=== PATIENT | female | born 1950 | race Caucasian/White ===

== ENCOUNTER → 2016-12-27 | Outpatient (CLI) | payer MEDICARE ==
--- NOTE | 2016-12-27 10:05 | MM ---
Reason for exam: screening (asymptomatic). History: Patient is postmenopausal. Physical Findings: A clinical breast exam by your physician is recommended on an annual basis and results should be correlated with mammographic findings. MG Screening Mammo w CAD Bilateral CC and MLO view(s) were taken. No prior studies available for comparison. The breast tissue is heterogeneously dense. This may lower the sensitivity of mammography. Finding: There are typically benign round, diffuse/scattered and grouped calcifications in both breasts. There is no discrete abnormality. ASSESSMENT: Benign, BI-RAD 2 RECOMMENDATION: Routine screening mammogram of both breasts in 1 year.
--- NOTE | 2016-12-27 10:05 | BD ---
EXAMINATION TYPE: MG DEXA axial skeleton. DATE OF EXAM: 12/27/2016 9:42 AM COMPARISON: NONE CLINICAL HISTORY: Post menopausal female. Height: 63.7 IN Weight: 192 LBS FRAX RISK QUESTIONS: Alcohol (3 or more units per day): NO Family History (Parent hip fracture): NO Glucocorticoids (More than 3mos): NO (Ex: prednisone, prednisolone, methylprednisolone, dexamethasone, and hydrocortisone). History of Fracture in Adulthood: NO Secondary Osteoporosis: 1. Type 1 Diabetes: NO 2. Hyperthyroidism: NO 3. Menopause before 45: NO AGE 51 4. Malnutrition: NO 5. Chronic liver disease: NO Rheumatoid Arthritis: NO Current Tobacco Use: NO RISK FACTORS HISTORY OF: Active: YES Diet low in dairy products/other sources of calcium: YES Postmenopausal woman: AGE 51 Frequent falls: YES BALANCE ISSUES MEDICATIONS: Thyroid Medications: YES Which medication: Synthroid How Lon MONTHS Additional Medications: MULTI VIT, SYNTHROID, B-12, MAGNESIUM,ASPIRIN, GLIPIZIDE, ATORVASTATIN, METOP ROLOL,FLECAINIDE EXAM MEASUREMENTS: Bone mineral densitometry was performed using the [employer] System. Bone mineral density as measured about the Lumbar spine is: ----- L1-L4(G/cm2): 1.199 T Score Values are as follows: ----- L2: -0.6 ----- L3: 0.7 ----- L4: 1.1 ----- L1-L4: 0.2 Bone mineral density BASELINE Bone mineral density about the R hip (g/cm2): 0.886 Bone mineral density about the L hip (g/cm2): 0.848 T Score values are as follows: -----R Neck: -1.1 -----L Neck: -1.4 -----R Intertrochanter: -1.4 -----L Intertrochanter: -0.8 Bone mineral density BASELINE IMPRESSION: Osteopenia (T Score between -2.5 and -1 as noted by T score values in bilateral hips. There is slightly increased risk of fracture and the patient may be considered for treatment. Re-Screen 1-2 years. NOTE: T-SCORE=SD OF THE YOUNG ADULT MEAN.
== END | disposition home or self-care (01) ==
LOC: RADMAMWWP 08:52
PROVIDERS: ATTEND Family Medicine
DX: Z12.31 Encounter for screening mammogram for malignant neoplasm of breast (principal); M85.852 Other specified disorders of bone density and structure, left thigh; M85.851 Other specified disorders of bone density and structure, right thigh; Z78.0 Asymptomatic menopausal state
CPT/HCPCS: 77080; G0202

== ENCOUNTER → 2021-09-21 | Outpatient (CLI) | payer MEDICARE ==
--- NOTE | 2021-09-21 14:38 | BD ---
EXAMINATION TYPE: Axial Bone Density DATE OF EXAM: 09/21/2021 COMPARISON: 12.27.2016 CLINICAL HISTORY: 71 YR OLD FEMALE....ICD-10 CODE: M85.88 DISORDER OF BD Height: 63.2 Weight: 199 FRAX RISK QUESTIONS: History of Fracture in Adulthood: YES RISK FACTORS HISTORY OF: HX OF LT SHOULDER FX 3 YRS AGO Postmenopausal woman: YES AT AGE 51 YRS Lost more than 2 inches in height since high school: YES Frequent falls: YES Hyperparathyroidism: NO Adrenal Insufficiency: NO MEDICATIONS: Thyroid Medications: YES, SYNTHROID FOR 5 YRS Additional Medications: BP MEDS, GLIPIZIDE, MULTIVITAMIN, Additional History: DIABETIC, HYPERTENSION EXAM MEASUREMENTS: Bone mineral densitometry was performed using the [employer] System. Bone mineral density as measured about the Lumbar spine is: ----- L1-L4(G/cm2): 1.268 T Score Values are as follows: ----- L1: 0.1 ----- L2: 0.3 ----- L3: 1.0 ----- L4: 1.1 ----- L1-L4: 0.7 Bone mineral density has: Increased 3.1% since study of: 12.27.2016 Bone mineral density about the R hip (g/cm2): 0.983 Bone mineral density about the L hip (g/cm2): 0.972 T Score values are as follows: -----R Neck: -0.9 -----L Neck: -1.9 -----R Total: -0.2 -----L Total: -0.3 Bone mineral density has: Increased 2.1% since study of: 12.27.2016 FRAX%s: THERE IS A 16.5% CHANCE FOR A MAJOR OSTEOPOROTIC FX AND A 2.8% FOR HIP......PROBABILITY F OR FX IN 10 YRS TIME IMPRESSION: Osteopenia (T Score between -2.5 and -1) femoral neck level in the left hip remains present. There is slightly increased risk of fracture and the patient may be considered for treatment. Re-Screen 2-5 years. NOTE: T-SCORE=SD OF THE YOUNG ADULT MEAN.
--- NOTE | 2021-09-30 12:19 | MM ---
Reason for exam: screening (asymptomatic). Last mammogram was performed 4 years and 9 months ago. History: Patient is postmenopausal. Family history of breast cancer in maternal aunt at age 50 and breast cancer in maternal cousin at age 71. Physical Findings: A clinical breast exam by your physician is recommended on an annual basis and results should be correlated with mammographic findings. MG 3D Screening Mammo W/Cad Bilateral CC and MLO view(s) were taken. Prior study comparison: December 13, 2018, mammogram, performed at [place]. December 27, 2016, bilateral MG screening mammo w CAD. There are scattered fibroglandular densities. Partially visualized asymmetric density far posterior lateral left CC view. Otherwise, no significant new finding. ASSESSMENT: Incomplete: need additional imaging evaluation, BI-RAD 0 RECOMMENDATION: Special view mammogram of the left breast. (3D) If lesion persists on supplemental views, image directed ultrasound is recommended. [facility] will attempt to contact patient to return for supplemental views and ultrasound if indicated.
== END | disposition home or self-care (01) ==
LOC: RADBDWWP 12:28
PROVIDERS: ATTEND Family Medicine
DX: Z12.31 Encounter for screening mammogram for malignant neoplasm of breast (principal); Z13.820 Encounter for screening for osteoporosis; M85.80 Other specified disorders of bone density and structure, unspecified site; M85.88 Other specified disorders of bone density and structure, other site
CPT/HCPCS: 77063; 77067; 77080

== ENCOUNTER → 2021-10-15 | Outpatient (CLI) | payer MEDICARE ==
--- NOTE | 2021-10-18 10:06 | MM ---
Reason for exam: additional evaluation requested from abnormal screening. Last mammogram was performed 1 month ago. History: Patient is postmenopausal. Family history of breast cancer in maternal aunt at age 50 and breast cancer in maternal cousin at age 71. Physical Findings: Nurse did not find any significant physical abnormalities on exam. MG 3D Work Up W/Cad LT LM, XCCL, spot compression MLO, and spot compression CC view(s) were taken of the left breast. Prior study comparison: September 21, 2021, bilateral MG 3d screening mammo w/cad. December 13, 2018, mammogram, performed at [place]. Focal asymmetry 17mm posterior outer aspect does not go completely away on spot CC view not seen on additional views. These results were verbally communicated with the patient and result sheet given to the patient on 10/15/21. ASSESSMENT: Incomplete: need additional imaging evaluation, BI-RAD 0 RECOMMENDATION: Ultrasound of the left breast.
--- NOTE | 2021-10-18 10:08 | USB ---
Reason for exam: additional evaluation requested from abnormal screening. History: Patient is postmenopausal. Family history of breast cancer in maternal aunt at age 50 and breast cancer in maternal cousin at age 71. US Breast Workup Limited LT Left limited breast ultrasound including focal area of concern, retroareolar and axilla demonstrates no cystic or solid lesion seen. Suspect skin lesion or far posterior muscle/chest wall tissue. These results were verbally communicated with the patient and result sheet given to the patient on 10/15/21. ASSESSMENT: Probably benign, BI-RAD 3 RECOMMENDATION: Follow-up diagnostic mammogram of the left breast in 6 months.
== END | disposition home or self-care (01) ==
LOC: RADMAMWWP 13:30
PROVIDERS: ATTEND Family Medicine
DX: R92.8 Other abnormal and inconclusive findings on diagnostic imaging of breast (principal)
CPT/HCPCS: 77065; 76642; G0279; 77061

== ENCOUNTER → 2022-04-27 | Outpatient (CLI) | payer MEDICARE ==
--- NOTE | 2022-04-27 11:43 | MM ---
Reason for Exam: Follow-up at short interval from prior study. Last screening mammogram was performed 7 month(s) ago. Patient History: Menarche at age 14. First Full-Term at age 21. Postmenopausal. Maternal cousin had breast cancer, age 71. Maternal aunt had breast cancer, age 50. Risk Values: April 5 year model risk: 1.5%. NCI Lifetime model risk: 4.5%. Prior Study Comparison: 12/13/2018 Screening Mammogram, [place]. 09/21/2021 Bilateral Screening Mammogram, [facility]. 10/15/2021 Left Diagnostic Mammogram, [facility]. Tissue Density: Left: There are scattered fibroglandular densities. Findings: Analyzed By CAD. Focal asymmetry in the marked posterior outer aspect left breast seen best XCCL image 31 is more prominent on the current study likely due to technique but warrants further evaluation with ultrasound. Overall Assessment: Incomplete: need additional imaging evaluation, BI-RAD 0 Management: Diagnostic Breast Ultrasound of the left breast. Targeted ultrasound left breast marked posterior outer aspect. Results were given to the patient verbally at the time of exam. Electronically signed and approved by: Chino Godoy M.D.
--- NOTE | 2022-04-28 09:31 | USB ---
Reason for Exam: Additional evaluation requested from abnormal screening. Patient History: Menarche at age 14. First Full-Term at age 21. Postmenopausal. Maternal cousin had breast cancer, age 71. Maternal aunt had breast cancer, age 50. Risk Values: April 5 year model risk: 1.5%. NCI Lifetime model risk: 4.5%. Prior Study Comparison: 12/13/2018 Screening Mammogram, [place]. 09/21/2021 Bilateral Screening Mammogram, [facility]. 10/15/2021 Left Diagnostic Mammogram, [facility]. 10/15/2021 Left Diagnostic Ultrasound, [facility]. Findings: The upper outer quadrant of the left breast, the axilla of the left breast and the retroareolar of the left breast were scanned. Asymmetric prominent tissue redemonstrated deep in the left breast. No concerning solid or cystic mass or fluid collection is noted. Oval-shaped prominent tissue also identified. Overall Assessment: Negative, BI-RAD 1 Management: Return to routine follow-up (next follow-up: 09/21/2022 for Screening Mammogram) Electronically signed and approved by: Chino Godoy M.D.
== END | disposition home or self-care (01) ==
LOC: RADMAMWWP 11:06
PROVIDERS: ATTEND Family Medicine
DX: R92.8 Other abnormal and inconclusive findings on diagnostic imaging of breast (principal)
CPT/HCPCS: 77065; 76642; G0279; 77061

== ENCOUNTER → 2025-03-12 | Outpatient (CLI) | payer MEDICARE ==
--- NOTE | 2025-03-13 07:08 | BD ---
EXAMINATION TYPE: Axial Bone Density DATE OF EXAM: 03/12/2025 CLINICAL HISTORY: 74 years old Female. ICD-10 CODE: Z780 OSTEO , Additional History: Height: 63 Weight: 168 FRAX RISK QUESTIONS: Family History (Parent hip fracture): no History of Fracture in Adulthood: yes Secondary Osteoporosis: no RISK FACTORS HISTORY OF: Surgery to Spine/Hip(right/left)/Wrist (right/left): no MEDICATIONS: Thyroid Medications: yes Which medication: Synthroid How Lon years Osteoporosis Medications: no EXAM MEASUREMENTS: Bone mineral densitometry was performed using the [employer] System. Bone mineral density as measured about the Lumbar spine is: ----- L1-L4(G/cm2): 1.246 T Score Values are as follows: ----- L1: -0.3 ----- L2: 0.0 ----- L3: 1.7 ----- L4: 0.5 ----- L1-L4: 0.5 Z Score Values are as follows: ----- L1: 1.1 ----- L2: 1.3 ----- L3: 3.0 ----- L4: 1.9 ----- L1-L4: 1.9 Bone mineral density has: Decreased -5.4% since study of: 09/21/2021 Bone mineral density about the R hip (g/cm2): 0.904 Bone mineral density about the L hip (g/cm2): 0.908 T Score values are as follows: -----R Neck: -1.7 -----L Neck: -1.8 -----R Total: -0.8 -----L Total: -0.8 Z Score values are as follows: -----R Neck: -0.1 -----L Neck: -0.2 -----R Total: 0.6 -----L Total: 0.6 Bone mineral density has: Decreased -7.3% since study of: 09/21/2021 FRAX%s: The graph provided illustrates a 17.9% chance for a major osteoporotic fx and a 3.6% chance f or the hips probability for fx in 10 years time. IMPRESSION: Osteopenia (T Score between -2.5 and -1) remains present. There remains slightly increased risk of fracture and the patient may be considered for treatment. Re-Screen 2-5 years. NOTE: T-SCORE=SD OF THE YOUNG ADULT MEAN. [facility], , 03/13/2025 7:06 AM
--- NOTE | 2025-03-13 10:42 | MM ---
Reason for Exam: Screening (asymptomatic). Last mammogram was performed 1 year(s) and 1 month(s) ago. Patient History: Menarche at age 14. First Full-Term at age 21. Postmenopausal. Patient used Hormonal Contraceptives for 2 years. Maternal cousin had breast cancer, age 71. Maternal aunt had breast cancer, age 50. Risk Values: April 5 year model risk: 1.6%. NCI Lifetime model risk: 3.9%. Prior Study Comparison: 09/21/2021 Bilateral Screening Mammogram, [facility]. 10/15/2021 Left Diagnostic Mammogram, [facility]. 04/27/2022 Left MG 3D diag mammo w/cad LT, [facility]. 01/17/2023 Bilateral Screening Mammogram, [facility]. 04/04/2023 Left Diagnostic Mammogram, [facility]. 01/23/2024 Bilateral Screening Mammogram, [facility]. Tissue Density: The breasts are heterogeneously dense, which may obscure small masses. Findings: Analyzed By CAD. Multiple skin lesions bilaterally are marked by the technologist. Calcifications left breast appears to correspond to the lesion. There is no suspicious group of microcalcifications or new suspicious mass in either breast. Overall Assessment: Benign, BI-RAD 2 Management: Screening Mammogram of both breasts in 1 year. . Patient should continue monthly self-breast exams. A clinical breast exam by your physician is recommended on an annual basis. This exam should not preclude additional follow-up of suspicious palpable abnormalities. Note on April scores and lifetime risk: 1. A April score greater than 3% is considered moderate risk. If this is the case, consider specialist referral to assess eligibility for a risk reducing agent. 2. If overall lifetime risk for the development of breast cancer is 20% or higher, the patient may qualify for future screening with alternating mammogram and breast MRI. [facility], , 03/13/2025 10:40 AM. Electronically signed and approved by: Chino Godoy M.D.
== END | disposition home or self-care (01) ==
LOC: RADMAMWWP 15:45
PROVIDERS: ATTEND Family Medicine
DX: Z12.31 Encounter for screening mammogram for malignant neoplasm of breast (principal); M85.89 Other specified disorders of bone density and structure, multiple sites; R92.333 Mammographic heterogeneous density, bilateral breasts; R92.1 Mammographic calcification found on diagnostic imaging of breast; Z80.3 Family history of malignant neoplasm of breast; Z92.0 Personal history of contraception; Z78.0 Asymptomatic menopausal state
CPT/HCPCS: 77063; 77067; 77080